=== PATIENT | male | born 1940 | race Caucasian/White ===

== ENCOUNTER → 2017-11-18 | Outpatient (CLI) | payer MEDICARE, OTHER ==
[~2017-11-18] MED LIST: LOSA25TA5 PO; REGADENOSON 0.4 MG/5 ML SYRINGE ONE
== END | disposition home or self-care (01) ==
LOC: CFH 07:57
PROVIDERS: ATTEND Internal Medicine Cardiovascular Disease
DX: I25.89 Other forms of chronic ischemic heart disease (principal); I10 Essential (primary) hypertension
CPT/HCPCS: 78452; 93017; A9502; J2785

== ENCOUNTER 2017-12-23 08:18 | Day surgery (SDC) | payer MEDICARE, OTHER ==
[~2017-12-23] VITALS: Ht 190.5 cm; Wt 84.1 kg
[~2017-12-23 08:18] MED LIST changes: -REGADENOSON 0.4 MG/5 ML SYRINGE ONE
[2017-12-23] MEDS ORDERED: SODIUM CHLORIDE 0.9% 1,000 ML IV ONE (09:12)
[2017-12-23] MEDS ORDERED: DIPHENHYDRAMINE 50 MG/ML, 1ML ONE (09:15)
[2017-12-23] MEDS ORDERED: PLEASE ENTER HEIGHT AND WEIGHT MC SCH (09:21)
[2017-12-23 09:22] VITALS: BP 152/80
[2017-12-23] MEDS ORDERED: ASPI-621 PO (09:26)
[2017-12-23] MEDS ORDERED: CHOL400C PO (09:26)
[2017-12-23] MEDS ORDERED: DIPHENHYDRAMINE 50 MG/ML, 1ML IVPush ONE (09:30)
[2017-12-23] MEDS ORDERED: MIDAZOLAM 1 MG/ML, 5ML ONE (09:41)
[2017-12-23] MEDS ORDERED: VERAPAMIL 2.5 MG/ML, 2ML ONE (09:41)
[2017-12-23] MEDS ORDERED: FENTANYL PF 100 MCG/2ML ONE (09:41)
[2017-12-23] MEDS ORDERED: TICAGRELOR 90 MG TABLET ONE (09:41)
[2017-12-23] MEDS ORDERED: BIVALIRUDIN 250 MG ONE (09:42)
[2017-12-23] MEDS ORDERED: HEPARIN 1,000 UNITS/ML, 10ML ONE (09:42)
[2017-12-23] MEDS ORDERED: LIDOCAINE 2%, 2ML ONE (09:42)
[2017-12-23] MEDS ORDERED: NITROGLYCERIN 5 MG/ML, 10ML ONE (09:42)
[2017-12-23] MEDS ORDERED: SODIUM CHLORIDE 0.9% 1,000 ML IV SCH (10:51)
== END 2017-12-23 14:10 ==
LOC: CACL 08:18
PROVIDERS: ATTEND Internal Medicine Cardiovascular Disease
DX: I25.9 Chronic ischemic heart disease, unspecified (principal); I10 Essential (primary) hypertension; I34.0 Nonrheumatic mitral (valve) insufficiency; R93.1 Abnormal findings on diagnostic imaging of heart and coronary circulation
CPT/HCPCS: 93454; 99156; C1769; C1894; J1200; J1644; J2250; J3010; J3490; Q9967; J0583

== ENCOUNTER 2019-01-23 14:24 | Outpatient (CLI) | payer MEDICARE, OTHER ==
[~2019-01-23 14:24] MED LIST changes: +ASPI81TA45 PO; +CHOL400C PO; +LOSA25TA25 PO; -LOSA25TA5 PO
== END 2019-01-23 23:59 | disposition home or self-care (01) ==
LOC: CVU 14:24
PROVIDERS: ATTEND Internal Medicine Cardiovascular Disease
DX: I08.8 Other rheumatic multiple valve diseases (principal)
CPT/HCPCS: 93306

== ENCOUNTER 2019-05-22 04:14 | Inpatient (IN) | payer MEDICARE, OTHER ==
[2019-05-21 14:39] LABS: MICROSCOPIC NOT IND
[2019-05-21 14:50] LABS: CULTURE INDICATED? NO
[2019-05-21 14:58] LABS: INTERNATIONAL NORMALIZED RATIO 1.11 (0.93-1.1); PROTHROMBIN TIME 11.6 Seconds (9.6-11.5)
[2019-05-21 15:00] LABS: ALANINE AMINOTRANSFERASE 23 U/L (12-78); ALBUMIN 3.6 g/dL (3.4-5.0); ANION GAP 5 mmol/L (5-15); CHLORIDE 106 mmol/L (98-107)
[2019-05-21 15:02] LABS: ALKALINE PHOSPHATASE 74 U/L (45-117); BILIRUBIN,TOTAL 0.7 mg/dL (0.2-1.0); TOTAL PROTEIN 7.3 g/dL (6.4-8.2)
[2019-05-21 15:07] LABS: BASOPHILS # (AUTO) 0.04 x10^3/uL (0-0.1); BASOPHILS % (AUTO) 1 % (0-1); EOSINOPHILS # (AUTO) 0.06 x10^3/uL (0-0.4); EOSINOPHILS % (AUTO) 1 % (1-7); LYMPHOCYTES # (AUTO) 1.49 x10^3/uL (1-3.4); LYMPHOCYTES % (AUTO) 27 % (22-44); MD NO; MEAN CORPUSCULAR HEMOGLOBIN 33.8 pg (27.5-34.5); MEAN CORPUSCULAR VOLUME 102.4 fL (81-97); MONOCYTES # (AUTO) 0.37 x10^3/uL (0.2-0.8); MONOCYTES % (AUTO) 7 % (2-9); NEUTROPHILS # (AUTO) 3.59 x10^3/uL (1.8-6.8); NEUTROPHILS % (AUTO) 65 % (42-75); PLATELET COUNT 215 x10^3/uL (130-400); RED BLOOD COUNT 4.98 x10^6/uL (4.38-5.82); RED CELL DISTRIBUTION WIDTH 13.9 % (9.4-14.8)
[2019-05-21 15:44] LABS: HEMOGLOBIN A1C 5.6 % (4.2-6.3)
[~2019-05-22] VITALS: Ht 193 cm; Wt 86.5 kg
[~2019-05-22 04:14] MED LIST changes: +UMEC1DIS INH
[2019-05-22 04:33] VITALS: BP 153/85
[2019-05-22 04:34] VITALS: BP 151/80
[2019-05-22] MEDS: MUPIROCIN OINT 2%, 22GM TP SCH ×2 (04:43→21:31)
[2019-05-22] MEDS ORDERED: DO NOT GIVE XX SCH (05:00)
[2019-05-22] MEDS ORDERED: INSULIN LISPRO 100 UNITS/ML, PEN SQ-INSULIN SCH ×2 (05:00)
[2019-05-22] MEDS ORDERED: DO NOT GIVE MC SCH (05:00)
[2019-05-22] MEDS ORDERED: CHLORHEXIDINE 15 ML UDC MM SCH (05:00)
[2019-05-22] MEDS ORDERED: ACETAMINOPHEN 325 MG TABLET PO PRN ×2 (05:00→10:30)
[2019-05-22] MEDS ORDERED: MIDAZOLAM 10MG/2 ML ONE (07:04)
[2019-05-22] MEDS ORDERED: FENTANYL PF 250 MCG/5ML ONE ×4 (07:05)
[2019-05-22] MEDS ORDERED: ALBUMIN HUMAN 5% 500 ML IV PRN (07:30)
[2019-05-22] MEDS ORDERED: DEXMEDETOMIDINE 200 MCG in SODIUM CHLORIDE 0.9% 48 ML IV SCH (07:30)
[2019-05-22] MEDS ORDERED: MANNITOL PMX 20% 500 ML IVPB PRN (07:30)
[2019-05-22] MEDS ORDERED: PHENYLEPHRINE 10 MG in SODIUM CHLORIDE 0.9% 249 ML IV PRN ×2 (07:30→10:21)
[2019-05-22] MEDS ORDERED: EPINEPHRINE 2 MG in SODIUM CHLORIDE 0.9% 248 ML IV SCH (07:30)
[2019-05-22] MEDS ORDERED: VANCOMYCIN 1,250 MG in SODIUM CHLORIDE 0.9% 250 ML IV PRN (07:30)
[2019-05-22] MEDS ORDERED: REGULAR INSULIN 62.5 UNITS in SODIUM CHLORIDE 0.9% 249.375 ML IV PRN (07:30)
[2019-05-22] MEDS ORDERED: POTASSIUM CHLORIDE 80 MEQ, SODIUM BICARBONATE 8.4% 10 MEQ, MAGNESIUM SULFATE 0.5 GM, LI... IV PRN (07:30)
[2019-05-22] MEDS ORDERED: CEFUROXIME 1.5 GM in SODIUM CHLORIDE 0.9% 50 ML IVPB PRN (07:30)
[2019-05-22] MEDS: DOCUSATE 100 MG CAPSULE PO SCH ×2 (09:00→21:29)
[2019-05-22] MEDS ORDERED: PROTAMINE SULFATE 10 MG/ML, 25ML ONE ×2 (09:11)
[2019-05-22] MEDS ORDERED: PROPOFOL 10 MG/ML, 20ML ONE (09:11)
[2019-05-22] MEDS ORDERED: AMINOCAPROIC ACID 250 MG/ML, 20ML ONE ×2 (09:12)
[2019-05-22] MEDS ORDERED: ROCURONIUM 10MG/ML,5ML ONE ×2 (09:12)
[2019-05-22] MEDS ORDERED: VASOPRESSIN 20 UNIT/ML, 1ML ONE (09:33)
[2019-05-22] MEDS ORDERED: CALCIUM CHLORIDE 10%, 10ML SYR ONE (09:54)
[2019-05-22] MEDS ORDERED: DOBUTAMINE 250 MG in SODIUM CHLORIDE 0.9% 230 ML IV PRN (10:21)
[2019-05-22] MEDS ORDERED: VASOPRESSIN 50 UNIT in SODIUM CHLORIDE 0.9% 247.5 ML IV PRN (10:21)
[2019-05-22] MEDS ORDERED: NITROGLYCERIN/D5W PMX 250 ML IV PRN (10:21)
[2019-05-22] MEDS ORDERED: SODIUM CHLORIDE 0.9% 1,000 ML IV PRN (10:21)
[2019-05-22] MEDS ORDERED: FENTANYL PF 100 MCG/2ML IVPush PRN (10:30)
[2019-05-22] MEDS: KSCALE TO 4.5 IV SCH ×3 (10:30→22:30)
[2019-05-22] MEDS ORDERED: PROCHLORPERAZINE 5 MG/ML, 2ML IVPush PRN (10:30)
[2019-05-22] MEDS ORDERED: DEXTROSE 4 GM TAB.CHEW PO PRN (10:30)
[2019-05-22] MEDS ORDERED: ONDANSETRON 2MG/ML, 2ML IVPush PRN (10:30)
[2019-05-22] MEDS ORDERED: BISACODYL 10 MG SUPP PR PRN (10:30)
[2019-05-22] MEDS ORDERED: LACTATED RINGERS 1,000 ML IV PRN (10:30)
[2019-05-22] MEDS ORDERED: morphine SULFATE 10 MG/ML, 1ML IVPush PRN (10:30)
[2019-05-22] MEDS ORDERED: BISACODYL 5 MG EC TABLET PO PRN (10:30)
[2019-05-22] MEDS ORDERED: HYDROcodone/APAP 10/325 MG TABLET PO PRN (10:30)
[2019-05-22] MEDS ORDERED: SODIUM BICARB 8.4%, 50ML SYRINGE IV PRN (10:30)
[2019-05-22] MEDS ORDERED: MIDAZOLAM 1 MG/ML, 5ML IVPush PRN (10:30)
[2019-05-22] MEDS ORDERED: EPINEPHRINE 2 MG in SODIUM CHLORIDE 0.9% 248 ML IV PRN (10:30)
[2019-05-22] MEDS ORDERED: GLUCAGON 1 MG IM PRN (10:30)
[2019-05-22] MEDS ORDERED: DEXTROSE 50%, 50ML SYRINGE IVPush PRN (10:30)
[2019-05-22] MEDS ORDERED: ACETAMINOPHEN 650 MG SUPP PR PRN (10:30)
[2019-05-22] MEDS ORDERED: MORPHINE SULFATE 4 MG/ML, 1ML ONE (10:43)
[2019-05-22] MEDS ORDERED: ALBUMIN HUMAN 25% 50 ML ONE (10:46)
[2019-05-22] MEDS ORDERED: HEPARIN 1,000 UNITS/ML, 30ML ONE (10:46)
[2019-05-22] MEDS ORDERED: SODIUM BICARBONATE 1 MEQ/ML, 50ML VIAL ONE (10:46)
[2019-05-22] MEDS ORDERED: LIDOCAINE-MPF 2% ,5ML ONE (10:46)
[2019-05-22] MEDS ORDERED: methylPREDNISolone SOD SUCC 125 MG/2 ML ONE (10:46)
[2019-05-22 10:58] LABS: GLUCOSE BY BLOOD GAS ANALYZER 146 mg/dL (70-110); HEMOGLOBIN BY BLOOD GAS ANALYZ 13.7 g/dL (14.0-18.0); POTASSIUM BY BLOOD GAS ANALYZR 3.9 mmol/L (3.6-5.5)
[2019-05-22] MEDS: INSULIN LISPRO 100 UNITS/ML, PEN SQ-INSULIN SCH ×3 (11:00→20:00)
[2019-05-22] MEDS ORDERED: DEXMEDETOMIDINE 200 MCG in SODIUM CHLORIDE 0.9% 48 ML IV PRN (11:00)
[2019-05-22] MEDS: SODIUM CHLORIDE FLUSH 10ML SYR IVF SCH ×3 (11:32→21:40)
[2019-05-22] MEDS: MAGNESIUM SULFATE 1 GM in SODIUM CHLORIDE 0.9% 50 ML IVPB SCH (11:33)
[2019-05-22] MEDS ORDERED: POTASSIUM CHLORIDE PMX 100 ML IV ONE (12:00)
[2019-05-22] MEDS ORDERED: ALBUMIN HUMAN 5% 500 ML IV ONE ×2 (12:30→15:00)
[2019-05-22] MEDS: HYDROcodone/APAP 5/325 TABLET PO PRN ×2 (16:28→20:24)
[2019-05-22] MEDS: OXYcodone IR 5MG TABLET PO PRN (17:15)
[2019-05-22] MEDS: ALBUTEROL/IPRATROPIUM 2.5MG/0.5MG, 3 ML NPPB SCH (21:00)
[2019-05-22] MEDS: MUPIROCIN OINT 2%, 22GM NAS SCH (21:00)
[2019-05-22] MEDS: KETOROLAC 30 MG/1 ML IVPush PRN (21:37)
[2019-05-22] MEDS ORDERED: VANCOMYCIN 1,200 MG in SODIUM CHLORIDE 0.9% 250 ML IVPB ONE (23:00)
[2019-05-23] MEDS: INSULIN LISPRO 100 UNITS/ML, PEN SQ-INSULIN SCH ×6 (01:00→21:31)
[2019-05-23] MEDS: ALBUTEROL/IPRATROPIUM 2.5MG/0.5MG, 3 ML NPPB SCH ×4 (03:00→21:00)
[2019-05-23] MEDS: KSCALE TO 4.5 IV SCH (04:30)
[2019-05-23 04:44] LABS: BASOPHILS % (AUTO) 0 % (0-1); EOSINOPHILS % (AUTO) 0 % (1-7); LYMPHOCYTES # (AUTO) 0.67 x10^3/uL (1-3.4); LYMPHOCYTES % (AUTO) 6 % (22-44); MD NO; MEAN CORPUSCULAR HEMOGLOBIN 34.1 pg (27.5-34.5); MEAN CORPUSCULAR HGB CONC 33.4 g/dL (33.2-36.2); MEAN PLATELET VOLUME 8.3 fL (7.4-10.4); MONOCYTES # (AUTO) 0.75 x10^3/uL (0.2-0.8); MONOCYTES % (AUTO) 7 % (2-9); NEUTROPHILS # (AUTO) 9.29 x10^3/uL (1.8-6.8); NEUTROPHILS % (AUTO) 87 % (42-75); PLATELET COUNT 127 x10^3/uL (130-400); RED BLOOD COUNT 3.71 x10^6/uL (4.38-5.82); RED CELL DISTRIBUTION WIDTH 14.1 % (9.4-14.8)
[2019-05-23 04:56] LABS: INTERNATIONAL NORMALIZED RATIO 1.24 (0.93-1.1); PROTHROMBIN TIME 12.9 Seconds (9.6-11.5)
[2019-05-23 04:57] LABS: ALBUMIN 3.3 g/dL (3.4-5.0); ANION GAP 5 mmol/L (5-15); CALCIUM 7.7 mg/dL (8.5-10.1); CHLORIDE 113 mmol/L (98-107); CREATININE 1.06 mg/dL (0.7-1.3)
[2019-05-23] MEDS: DOCUSATE 100 MG CAPSULE PO SCH ×2 (07:14→21:30)
[2019-05-23] MEDS: ASPIRIN 81 MG TABLET EC PO SCH (07:14)
[2019-05-23] MEDS: MUPIROCIN OINT 2%, 22GM NAS SCH ×2 (07:14→21:30)
[2019-05-23] MEDS: KETOROLAC 30 MG/1 ML IVPush PRN ×2 (07:14→23:54)
[2019-05-23] MEDS: SODIUM CHLORIDE FLUSH 10ML SYR IVF SCH ×4 (07:14→21:31)
[2019-05-23] MEDS: MUPIROCIN OINT 2%, 22GM TP SCH ×2 (07:15→21:32)
[2019-05-23] MEDS: WARFARIN BIOPROSTHETIC VALVE PROTOCOL 2-3 XX SCH (07:49)
[2019-05-23] MEDS ORDERED: POTASSIUM CHLORIDE 20 MEQ TAB.ER.PRT PO ONE (08:00)
[2019-05-23] MEDS ORDERED: POTASSIUM CHLORIDE 20 MEQ TAB.ER.PRT ONE (08:18)
[2019-05-23] MEDS: TAMSULOSIN 0.4 MG CAP.ER.24H PO SCH (08:34)
[2019-05-23] MEDS ORDERED: FUROSEMIDE 20 MG/2 ML IV SCH (09:00)
[2019-05-23] MEDS: MAGNESIUM SULFATE 1 GM in SODIUM CHLORIDE 0.9% 50 ML IVPB SCH (10:44)
[2019-05-23] MEDS: OXYcodone IR 5MG TABLET PO PRN ×2 (13:00→17:45)
[2019-05-23 14:36] VITALS: BP 125/57
[2019-05-23 14:57] VITALS: BP 115/57
[2019-05-23] MEDS ORDERED: WARFARIN 5 MG TABLET PO-COUM ONE (18:00)
[2019-05-23 18:38] VITALS: BP 114/66
[2019-05-23] MEDS ORDERED: CHLORHEXIDINE 15 ML UDC MM SCH (21:00)
[2019-05-24 01:02] VITALS: BP 117/67
[2019-05-24] MEDS: ALBUTEROL/IPRATROPIUM 2.5MG/0.5MG, 3 ML NPPB SCH ×4 (03:00→19:30)
[2019-05-24 04:23] LABS: MEAN CORPUSCULAR HEMOGLOBIN 33.8 pg (27.5-34.5); MEAN CORPUSCULAR HGB CONC 33.5 g/dL (33.2-36.2); MEAN CORPUSCULAR VOLUME 100.9 fL (81-97); MEAN PLATELET VOLUME 8.3 fL (7.4-10.4); PLATELET COUNT 110 x10^3/uL (130-400); RED BLOOD COUNT 3.76 x10^6/uL (4.38-5.82); RED CELL DISTRIBUTION WIDTH 14.7 % (9.4-14.8)
[2019-05-24 04:29] LABS: ANION GAP 6 mmol/L (5-15); CALCIUM 8.2 mg/dL (8.5-10.1); CHLORIDE 108 mmol/L (98-107); CREATININE 1.22 mg/dL (0.7-1.3); INTERNATIONAL NORMALIZED RATIO 1.17 (0.93-1.1); PROTHROMBIN TIME 12.2 Seconds (9.6-11.5)
[2019-05-24 05:18] LABS: MD YES
[2019-05-24 05:21] LABS: <PLATELET ESTIMATE> DECREASED; <PLT MORPHOLOGY> NORMAL PLT MORPH; <RBC MORPHOLOGY> NORMAL; LYMPH#(MANUAL) 1.21 x10^3/uL (1-3.4); LYMPHS% (MANUAL) 10 % (22-44); MONOS#(MANUAL) 0.61 x10^3/uL (0.3-2.7); MONOS% (MANUAL) 5 % (2-9); SEG#(MANUAL) 10.29 x10^3/uL (1.8-6.8); SEGS% (MANUAL) 85 % (42-75)
[2019-05-24 06:55] VITALS: BP 135/74
[2019-05-24] MEDS: INSULIN LISPRO 100 UNITS/ML, PEN SQ-INSULIN SCH ×4 (07:00→21:48)
[2019-05-24] MEDS: ASPIRIN 81 MG TABLET EC PO SCH (09:00)
[2019-05-24] MEDS: FUROSEMIDE 40 MG/4 ML IV SCH (09:00)
[2019-05-24] MEDS: WARFARIN BIOPROSTHETIC VALVE PROTOCOL 2-3 XX SCH (09:00)
[2019-05-24] MEDS: SODIUM CHLORIDE FLUSH 10ML SYR IVF SCH ×4 (09:00→21:44)
[2019-05-24] MEDS: MUPIROCIN OINT 2%, 22GM NAS SCH ×2 (09:01→21:42)
[2019-05-24] MEDS: TAMSULOSIN 0.4 MG CAP.ER.24H PO SCH (09:01)
[2019-05-24] MEDS: DOCUSATE 100 MG CAPSULE PO SCH ×2 (09:01→21:42)
[2019-05-24] MEDS: MAGNESIUM SULFATE 1 GM in SODIUM CHLORIDE 0.9% 50 ML IVPB SCH (11:24)
[2019-05-24 12:10] VITALS: BP 126/74
[2019-05-24] MEDS ORDERED: WARFARIN 5 MG TABLET PO-COUM ONE (18:00)
[2019-05-24 18:40] VITALS: BP 127/81
[2019-05-25 00:48] VITALS: BP 133/78
[2019-05-25] MEDS: ALBUTEROL/IPRATROPIUM 2.5MG/0.5MG, 3 ML NPPB SCH ×4 (02:57→19:55)
[2019-05-25 05:18] LABS: MEAN CORPUSCULAR HEMOGLOBIN 34.1 pg (27.5-34.5); MEAN CORPUSCULAR HGB CONC 33.2 g/dL (33.2-36.2); MEAN CORPUSCULAR VOLUME 102.7 fL (81-97); MEAN PLATELET VOLUME 8.6 fL (7.4-10.4); PLATELET COUNT 98 x10^3/uL (130-400); RED BLOOD COUNT 3.58 x10^6/uL (4.38-5.82); RED CELL DISTRIBUTION WIDTH 14.2 % (9.4-14.8)
[2019-05-25 05:24] LABS: CHLORIDE 108 mmol/L (98-107)
[2019-05-25 05:30] LABS: ANION GAP 5 mmol/L (5-15); CALCIUM 7.9 mg/dL (8.5-10.1); CREATININE 0.92 mg/dL (0.7-1.3)
[2019-05-25 05:46] LABS: BASOPHILS # (AUTO) 0.01 x10^3/uL (0-0.1); BASOPHILS % (AUTO) 0 % (0-1); EOSINOPHILS # (AUTO) 0.03 x10^3/uL (0-0.4); EOSINOPHILS % (AUTO) 0 % (1-7); LYMPHOCYTES % (AUTO) 11 % (22-44); MD SCAN; MONOCYTES # (AUTO) 0.69 x10^3/uL (0.2-0.8); MONOCYTES % (AUTO) 9 % (2-9); NEUTROPHILS # (AUTO) 6.36 x10^3/uL (1.8-6.8); NEUTROPHILS % (AUTO) 80 % (42-75)
[2019-05-25] MEDS: INSULIN LISPRO 100 UNITS/ML, PEN SQ-INSULIN SCH (07:00)
[2019-05-25 08:05] VITALS: BP 137/88
[2019-05-25] MEDS: SODIUM CHLORIDE FLUSH 10ML SYR IVF SCH ×4 (09:18→20:37)
[2019-05-25] MEDS: WARFARIN BIOPROSTHETIC VALVE PROTOCOL 2-3 XX SCH (09:18)
[2019-05-25] MEDS: DOCUSATE 100 MG CAPSULE PO SCH ×2 (09:37→20:37)
[2019-05-25] MEDS: MUPIROCIN OINT 2%, 22GM NAS SCH ×2 (09:37→20:37)
[2019-05-25] MEDS: ASPIRIN 81 MG TABLET EC PO SCH (09:37)
[2019-05-25] MEDS: FUROSEMIDE 40 MG/4 ML IV SCH (09:37)
[2019-05-25] MEDS: TAMSULOSIN 0.4 MG CAP.ER.24H PO SCH (09:37)
[2019-05-25 10:49] LABS: INTERNATIONAL NORMALIZED RATIO 1.15 (0.93-1.1)
[2019-05-25 14:25] VITALS: BP 104/59
[2019-05-25] MEDS ORDERED: FILTER 0.22 MICRON IV PRN (16:00)
[2019-05-25] MEDS ORDERED: AMIODARONE 900 MG in DEXTROSE 5% 482 ML IV PRN (16:00)
[2019-05-25] MEDS ORDERED: AMIODARONE 150 MG in DEXTROSE 5% 100 ML IV ONE (16:00)
[2019-05-25] MEDS ORDERED: WARFARIN 7.5 MG TABLET PO-COUM ONE (18:00)
[2019-05-25 21:55] VITALS: BP 118/72
[2019-05-26] MEDS: ALBUTEROL/IPRATROPIUM 2.5MG/0.5MG, 3 ML NPPB SCH ×4 (02:34→19:40)
[2019-05-26 03:59] VITALS: BP 133/77
[2019-05-26 06:18] LABS: BASOPHILS # (AUTO) 0.02 x10^3/uL (0-0.1); BASOPHILS % (AUTO) 0 % (0-1); EOSINOPHILS # (AUTO) 0.12 x10^3/uL (0-0.4); EOSINOPHILS % (AUTO) 2 % (1-7); LYMPHOCYTES # (AUTO) 0.78 x10^3/uL (1-3.4); LYMPHOCYTES % (AUTO) 11 % (22-44); MD NO; MEAN CORPUSCULAR HEMOGLOBIN 34.2 pg (27.5-34.5); MEAN CORPUSCULAR HGB CONC 33.5 g/dL (33.2-36.2); MEAN CORPUSCULAR VOLUME 101.9 fL (81-97); MEAN PLATELET VOLUME 8.8 fL (7.4-10.4); MONOCYTES # (AUTO) 0.74 x10^3/uL (0.2-0.8); MONOCYTES % (AUTO) 10 % (2-9); NEUTROPHILS # (AUTO) 5.72 x10^3/uL (1.8-6.8); NEUTROPHILS % (AUTO) 78 % (42-75); PLATELET COUNT 111 x10^3/uL (130-400); RED BLOOD COUNT 3.69 x10^6/uL (4.38-5.82); RED CELL DISTRIBUTION WIDTH 13.7 % (9.4-14.8)
[2019-05-26 06:23] LABS: INTERNATIONAL NORMALIZED RATIO 1.25 (0.93-1.1)
[2019-05-26 06:25] LABS: CALCIUM 7.9 mg/dL (8.5-10.1); CHLORIDE 106 mmol/L (98-107); CREATININE 0.87 mg/dL (0.7-1.3)
[2019-05-26 06:42] LABS: ANION GAP 5 mmol/L (5-15)
[2019-05-26 06:43] VITALS: BP 143/77
[2019-05-26] MEDS: WARFARIN BIOPROSTHETIC VALVE PROTOCOL 2-3 XX SCH (09:00)
[2019-05-26] MEDS: SODIUM CHLORIDE FLUSH 10ML SYR IVF SCH ×4 (09:00→20:40)
[2019-05-26] MEDS: TAMSULOSIN 0.4 MG CAP.ER.24H PO SCH (09:14)
[2019-05-26] MEDS: ASPIRIN 81 MG TABLET EC PO SCH (09:14)
[2019-05-26] MEDS: FUROSEMIDE 40 MG/4 ML IV SCH (09:14)
[2019-05-26] MEDS: DOCUSATE 100 MG CAPSULE PO SCH ×2 (09:14→20:40)
[2019-05-26] MEDS: MUPIROCIN OINT 2%, 22GM NAS SCH ×2 (09:16→20:40)
[2019-05-26 12:06] VITALS: BP 114/76
[2019-05-26] MEDS ORDERED: WARFARIN 10 MG TABLET PO-COUM ONE (18:00)
[2019-05-26 20:38] VITALS: BP 120/70
[2019-05-26] MEDS: AMIODARONE 200 MG TABLET PO SCH (20:40)
[2019-05-27 01:34] VITALS: BP 132/82
[2019-05-27] MEDS: ALBUTEROL/IPRATROPIUM 2.5MG/0.5MG, 3 ML NPPB SCH ×4 (03:00→20:29)
[2019-05-27 05:42] LABS: BASOPHILS # (AUTO) 0.03 x10^3/uL (0-0.1); BASOPHILS % (AUTO) 0 % (0-1); EOSINOPHILS # (AUTO) 0.21 x10^3/uL (0-0.4); EOSINOPHILS % (AUTO) 3 % (1-7); LYMPHOCYTES # (AUTO) 0.87 x10^3/uL (1-3.4); LYMPHOCYTES % (AUTO) 13 % (22-44); MD NO; MEAN CORPUSCULAR HEMOGLOBIN 33.8 pg (27.5-34.5); MEAN CORPUSCULAR HGB CONC 33.1 g/dL (33.2-36.2); MEAN PLATELET VOLUME 8.5 fL (7.4-10.4); MONOCYTES # (AUTO) 0.78 x10^3/uL (0.2-0.8); MONOCYTES % (AUTO) 11 % (2-9); NEUTROPHILS # (AUTO) 4.96 x10^3/uL (1.8-6.8); NEUTROPHILS % (AUTO) 72 % (42-75); PLATELET COUNT 131 x10^3/uL (130-400); RED BLOOD COUNT 3.71 x10^6/uL (4.38-5.82)
[2019-05-27 05:45] LABS: INTERNATIONAL NORMALIZED RATIO 1.81 (0.93-1.1); PROTHROMBIN TIME 18.6 Seconds (9.6-11.5)
[2019-05-27 05:47] LABS: ANION GAP 7 mmol/L (5-15); CALCIUM 7.8 mg/dL (8.5-10.1); CHLORIDE 103 mmol/L (98-107); CREATININE 0.92 mg/dL (0.7-1.3)
[2019-05-27 08:37] VITALS: BP 127/79
[2019-05-27 08:45] VITALS: BP 135/77
[2019-05-27] MEDS: SODIUM CHLORIDE FLUSH 10ML SYR IVF SCH ×4 (09:00→20:57)
[2019-05-27] MEDS: WARFARIN BIOPROSTHETIC VALVE PROTOCOL 2-3 XX SCH (09:00)
[2019-05-27] MEDS: FUROSEMIDE 40 MG/4 ML IV SCH (09:22)
[2019-05-27] MEDS: MUPIROCIN OINT 2%, 22GM NAS SCH (09:22)
[2019-05-27] MEDS: ASPIRIN 81 MG TABLET EC PO SCH (09:23)
[2019-05-27] MEDS: AMIODARONE 200 MG TABLET PO SCH ×2 (09:23→20:57)
[2019-05-27] MEDS: DOCUSATE 100 MG CAPSULE PO SCH ×2 (09:23→20:57)
[2019-05-27] MEDS: TAMSULOSIN 0.4 MG CAP.ER.24H PO SCH ×2 (09:34→20:56)
[2019-05-27 14:29] VITALS: BP 102/65
[2019-05-27] MEDS ORDERED: WARFARIN 5 MG TABLET PO-COUM ONE (18:00)
[2019-05-27 18:54] VITALS: BP 98/55
[2019-05-28 01:02] VITALS: BP 118/74
[2019-05-28] MEDS: ALBUTEROL/IPRATROPIUM 2.5MG/0.5MG, 3 ML NPPB SCH ×2 (03:00→08:15)
[2019-05-28 05:24] LABS: INTERNATIONAL NORMALIZED RATIO 2.08 (0.93-1.1); PROTHROMBIN TIME 21.2 Seconds (9.6-11.5)
[2019-05-28 05:27] LABS: ANION GAP 6 mmol/L (5-15); CALCIUM 7.9 mg/dL (8.5-10.1); CHLORIDE 103 mmol/L (98-107)
[2019-05-28 05:29] LABS: CREATININE 1.03 mg/dL (0.7-1.3)
[2019-05-28 07:08] VITALS: BP 121/74
[2019-05-28] MEDS: FUROSEMIDE 40 MG/4 ML IV SCH (08:22)
[2019-05-28] MEDS: ASPIRIN 81 MG TABLET EC PO SCH (08:22)
[2019-05-28] MEDS: DOCUSATE 100 MG CAPSULE PO SCH (08:23)
[2019-05-28] MEDS: AMIODARONE 200 MG TABLET PO SCH (08:23)
[2019-05-28] MEDS: TAMSULOSIN 0.4 MG CAP.ER.24H PO SCH (08:23)
[2019-05-28] MEDS: SODIUM CHLORIDE FLUSH 10ML SYR IVF SCH ×2 (08:24→09:00)
[2019-05-28] MEDS ORDERED: FINASTERIDE 5 MG TABLET PO SCH (09:00)
[2019-05-28] MEDS: WARFARIN BIOPROSTHETIC VALVE PROTOCOL 2-3 XX SCH (09:00)
[2019-05-28] MEDS ORDERED: TAMS-11 PO (09:55)
[2019-05-28] MEDS ORDERED: BISA5TAB5 PO (09:55)
[2019-05-28] MEDS ORDERED: Warfarin Biopros Vlve Protocol XX (09:55)
[2019-05-28] MEDS ORDERED: AMIO200T42 PO (09:55)
[2019-05-28] MEDS ORDERED: FINA5TAB4 PO (09:55)
[2019-05-28] MEDS ORDERED: POTA20TA6 PO (09:55)
[2019-05-28] MEDS ORDERED: FURO20TA3 PO (09:55)
[2019-05-28] MEDS ORDERED: WARF-36 PO-COUM (09:55)
[2019-05-28 12:40] VITALS: BP 110/68
[2019-05-28] MEDS ORDERED: WARFARIN 5 MG TABLET PO-COUM ONE (18:00)
== END 2019-05-28 17:16 | DRG 219 ==
LOC: 5SO 04:14 → CSU 07:02 → 5SO 05-23 14:36
PROVIDERS: ADMIT Thoracic Surgery (Cardiothoracic Vascular Surgery); ATTEND Thoracic Surgery (Cardiothoracic Vascular Surgery)
PROC: B246ZZ4 Ultrasonography of Right and Left Heart, Transesophageal (ICD-10-PCS; 2019-05-22)
PROC: 05HY33Z Insertion of Infusion Device into Upper Vein, Percutaneous Approach (ICD-10-PCS; 2019-05-22)
PROC: 03HY32Z Insertion of Monitoring Device into Upper Artery, Percutaneous Approach (ICD-10-PCS; 2019-05-22)
PROC: 5A1223Z Performance of Cardiac Pacing, Continuous (ICD-10-PCS; 2019-05-22)
PROC: 02UG08Z Supplement Mitral Valve with Zooplastic Tissue, Open Approach (ICD-10-PCS; principal; 2019-05-22 07:30)
DX: I34.0 Nonrheumatic mitral (valve) insufficiency (principal); I50.33 Acute on chronic diastolic (congestive) heart failure; I97.190 Other postprocedural cardiac functional disturbances following cardiac surgery; I48.20 Chronic atrial fibrillation, unspecified; R33.9 Retention of urine, unspecified; Y83.8 Other surgical procedures as the cause of abnormal reaction of the patient, or of later complication, without mention of misadventure at the time of the procedure; R06.89 Other abnormalities of breathing; I34.1 Nonrheumatic mitral (valve) prolapse; J44.9 Chronic obstructive pulmonary disease, unspecified; I11.0 Hypertensive heart disease with heart failure; I25.10 Atherosclerotic heart disease of native coronary artery without angina pectoris; N40.0 Benign prostatic hyperplasia without lower urinary tract symptoms; Z82.49 Family history of ischemic heart disease and other diseases of the circulatory system; Z87.891 Personal history of nicotine dependence
CPT/HCPCS: 36415; 36600; 71045; 71046; 80048; 80053; 81003; 82040; 82330; 82800; 82803; 82810; 82947; 82962; 83036; 83735; 84132; 84295; 85014; 85018; 85025; 85049; 85347; 85610; 85730; 86850; 86900; 86923; 87081; 88305; 93005; 93312; 93321; 93325; 93880; 94002; 94150; 94640; G0378; J0697; J1644; J1815; J1885; J1940; J2250; J2704; J2720; J3010; J3370; J3475; J3480; J7620; P9045; P9047; C1751; C1760; J0171; J0282; J2270; J2370; J2930; J7050; J7060; J7120

== ENCOUNTER → 2019-07-05 | Outpatient (CLI) | payer MEDICARE, OTHER ==
[~2019-07-05] MED LIST changes: +AMIO200T42 PO; +BISA5TAB5 PO; +FINA5TAB4 PO; +FURO20TA3 PO; +POTA20TA6 PO; +TAMS-11 PO; +WARF-36 PO-COUM; +Warfarin Biopros Vlve Protocol XX
== END | disposition home or self-care (01) ==
LOC: CFH 14:17
PROVIDERS: ATTEND Registered Nurse
DX: I08.8 Other rheumatic multiple valve diseases (principal); I31.3 Pericardial effusion (noninflammatory); I10 Essential (primary) hypertension; Z95.2 Presence of prosthetic heart valve; Z87.891 Personal history of nicotine dependence
CPT/HCPCS: 93306

== ENCOUNTER → 2019-10-01 | Outpatient (CLI) | payer MEDICARE, OTHER | END | disposition home or self-care (01) | LOC: CFH 10:28 | PROVIDERS: ATTEND Internal Medicine | DX: J90 Pleural effusion, not elsewhere classified (principal); J98.11 Atelectasis; J43.2 Centrilobular emphysema; J96.00 Acute respiratory failure, unspecified whether with hypoxia or hypercapnia; Z87.891 Personal history of nicotine dependence | CPT/HCPCS: 71250 ==

== ENCOUNTER 2020-01-03 12:42 | Outpatient (CLI) | payer MEDICARE, OTHER | END 2020-01-03 23:59 | disposition home or self-care (01) | LOC: CVU 12:42 | PROVIDERS: ATTEND Internal Medicine Cardiovascular Disease | DX: I83.92 Asymptomatic varicose veins of left lower extremity (principal) | CPT/HCPCS: 93971 ==